=== PATIENT | female | born 1995 | race Caucasian/White ===

== ENCOUNTER 2023-01-10 15:31 | Emergency (ER) | payer OTHER, MEDICAID, SELFPAY ==
[2023-01-10 15:37] VITALS: BP 136/92; PULSE 84; RESP 18; TEMP 36.8; O2SAT 97; BMI 41.1
[2023-01-10 16:20] LABS: Add Manual Diff / Slide Review NO; Basophils Absolute Auto 100 /uL (0-100); Basophils Percent Auto 0.8 % (0-2); Eosinophils Absolute Auto 600 /uL (0-450); Eosinophils Percent Auto 6.5 % (2-4); Hematocrit 38.6 % (36-46); Lymphocytes Absolute Auto 2600 /uL (1100-4500); Lymphocytes Percent Auto 26.7 % (25-40); Mean Corpuscular HGB Conc 33.8 % (30-36); Mean Corpuscular Hemoglobin 27.9 PG (26-34); Mean Corpuscular Volume 82.5 fL (80-100); Monocytes Absolute Auto 700 /uL (0-900); Monocytes Percent Auto 7.3 % (3-14); Neutrophils Absolute Auto 5700 /uL (1500-7000); Neutrophils Percent Auto 58.7 % (50-75); Platelet Count 288 X10^3/uL (150-400); Red Blood Cell Count 4.67 X10^6/uL (4.0-5.2); Red Cell Distribution Width 14.5 % (11.6-14.8); White Blood Cell Count 9.8 X10^3/uL (4.5-11.0)
[2023-01-10 16:37] LABS: Alanine Aminotransferase 42 IU/L (<35); Albumin 4.4 g/dL (3.5-5.0); Albumin Globulin Ratio 1.1 (1.0-2.8); Alkaline Phosphatase 46 U/L (38-126); Aspartate Aminotransferase 34 IU/L (14-36); BUN Creatinine Ratio 15.4 (6-22); Bilirubin Total 0.4 mg/dL (0.2-1.3); Blood Urea Nitrogen 10 mg/dL (7-17); Calcium 9.7 mg/dL (8.4-10.2); Carbon Dioxide 22 mmol/L (22-32); Chloride 107 mmol/L (98-107); Estimated Glomerular Filt Rate > 60 mL/min (>60); Globulin 3.9 g/dL (1.7-4.1); Glucose 99 mg/dL (70-100); HEMOLYSIS < 15 (0-50); Lipase 220 U/L (23-300); Potassium 4.1 mmol/L (3.4-5.1); Sodium 137 mmol/L (137-145); Total Protein 8.3 g/dL (6.3-8.2)
[2023-01-10 17:52] VITALS: O2SAT 97
[2023-01-10 17:53] VITALS: BP 160/77; PULSE 74; O2SAT 98
[2023-01-10 18:00] VITALS: BP 120/70; PULSE 71; O2SAT 100
--- NOTE | 2023-01-10 18:10 | ED.GENADULT ---
HPI - General Adult General Chief complaint: Abdominal Pain Stated complaint: ABD cramping/ spotting/ fatigue Time Seen by Provider: 01/10/23 17:57 Source: patient Mode of arrival: Ambulatory History of Present Illness HPI narrative: Patient is a 27-year-old female. Not on blood thinners. Not on control. Last menstrual cycle was 2 weeks ago. She states that over the past month or so she has had episodes where she was having lower abdominal cramping. She is also having vaginal spotting. No urinary symptoms. No change in bowel habits. No vomiting. Has had her gallbladder removed but no other abdominal surgeries[place] which is why she is here today. Related Data Allergies Allergy/AdvReac Type Severity Reaction Status Date / Time No Known Drug Allergies Allergy Verified 01/10/23 15:37 Review of Systems Constitutional Constitutional: Reports system reviewed and no additional complaints, except as documented Gastrointestinal Gastrointestinal: Reports system reviewed and no additional complaints, except as documented Genitourinary Genitourinary: Reports system reviewed and no additional complaints, except as documented Hematologic/Lymphatic On Anticoagulants: No Patient History Social History Smoking Status: Current every day smoker Smoking Status: Current every day smoker tobacco type: vaping alcohol intake frequency: a few times a month Alcohol type: wine Substance Use Type: marijuana Exam Initial Vital Signs Initial Vital Signs: Vital Signs Temperature 98.3 F 01/10/23 15:37 Pulse Rate 84 01/10/23 15:37 Respiratory Rate 18 01/10/23 15:37 Blood Pressure 136/92 H 01/10/23 15:37 Pulse Oximetry 97 01/10/23 15:37 Oxygen Delivery Method Room Air 01/10/23 15:37 HENCA Head: normal to inspection and normocephalic Resp Effort & Inspection: normal respiratory effort Cardio Rate: regular rate GI Inspection: normal to inspection and non-distended Palpation: soft, No firm, No guarding and tender (Lower abdomen) Back/Spine/Pelvis Back: No CVA tenderness Skin General: no rashes or lesions noted Course Orders Ordered: ED Orders 01/10/23 16:00 Complete Blood Count AUTO DIFF Stat Comprehensive Metabolic Panel Stat Lipase Stat 01/10/23 18:09 US pelvic complete Stat Ondansetron HCl (Ondansetron 4 Mg Odt) 4 mg PO NOW PRN PRN Reason: Nausea And Vomiting Ondansetron HCl (Ondansetron 4 Mg/2 Ml Inj) 4 mg IV NOW PRN PRN Reason: Nausea And Vomiting Vital Signs Vital signs: Vital Signs - 8 hr 01/10/23 15:37 01/10/23 17:52 01/10/23 17:53 Temperature 98.3 F Pulse Rate 84 74 Respiratory Rate 18 Blood Pressure 136/92 H Pulse Oximetry 97 97 98 Oxygen Delivery Method Room Air 01/10/23 17:53 01/10/23 18:00 01/10/23 18:00 Temperature Pulse Rate 71 Respiratory Rate Blood Pressure 160/77 H 120/70 Pulse Oximetry 100 Oxygen Delivery Method Medical Decision Making Lab Data Lab results reviewed: Yes I reviewed the patient's lab results. 01/10/23 16:00 01/10/23 16:00 Labs: Lab Results 01/10/23 Range/Units 16:00 WBC 9.8 (4.5-11.0) X10^3/uL RBC 4.67 (4.0-5.2) X10^6/uL Hgb 13.0 (12.0-16.0) g/dL Hct 38.6 (36-46) % MCV 82.5 (80-100) fL MCH 27.9 (26-34) PG MCHC 33.8 (30-36) % RDW 14.5 (11.6-14.8) % Plt Count 288 (150-400) X10^3/uL Neut % (Auto) 58.7 (50-75) % Lymph % (Auto) 26.7 (25-40) % [place] % (Auto) 7.3 (3-14) % Eos % (Auto) 6.5 H (2-4) % Baso % (Auto) 0.8 (0-2) % Neut # (Auto) 5700 (2883-0606) /uL Lymph # (Auto) 2600 (7709-5801) /uL [place] # (Auto) 700 (0-900) /uL Eos # (Auto) 600 H (0-450) /uL Baso # (Auto) 100 (0-100) /uL Sodium 137 (137-145) mmol/L Potassium 4.1 (3.4-5.1) mmol/L Chloride 107 (98-107) mmol/L Carbon Dioxide 22 (22-32) mmol/L BUN 10 (7-17) mg/dL Creatinine 0.65 (0.52-1.04) mg/dL Estimated GFR > 60 (>60) mL/min BUN/Creatinine Ratio 15.4 (6-22) Glucose 99 (70-100) mg/dL Calcium 9.7 (8.4-10.2) mg/dL Total Bilirubin 0.4 (0.2-1.3) mg/dL AST 34 (14-36) IU/L ALT 42 H (<35) IU/L Alkaline Phosphatase 46 (38-126) U/L Total Protein 8.3 H (6.3-8.2) g/dL Albumin 4.4 (3.5-5.0) g/dL Globulin 3.9 (1.7-4.1) g/dL Albumin/Globulin Ratio 1.1 (1.0-2.8) Lipase 220 (23-300) U/L Point of Care Testing Test Results Negative Urine Dip Bedside Urine Glucose Negative Bedside Urine Bilirubin - Negative Bedside Urine Ketone - Negative Urine Specific [place] 1.020 Bedside Urine Occult Blood - Negative Bedside Urine pH 6.0 Bedside Urine Protein - Negative Bedside Urine Urobilinogen - Negative Bedside Urine Nitrite - Negative Bedside Urine Leukocytes - Negative Esterase Point of care testing: Point of Care Testing Test Results Negative Urine Dip Bedside Urine Glucose Negative Bedside Urine Bilirubin - Negative Bedside Urine Ketone - Negative Urine Specific [place] 1.020 Bedside Urine Occult Blood - Negative Bedside Urine pH 6.0 Bedside Urine Protein - Negative Bedside Urine Urobilinogen - Negative Bedside Urine Nitrite - Negative Bedside Urine Leukocytes - Negative Esterase Imaging Data US - ANIMAL [employer]S [employer] TRA[employer]ERS: Radiologist's Impression: PROCEDURE: US PELVIC COMPLETE INDICATIONS: lower abd pain TECHNIQUE: Real-time scanning was performed of the pelvic organs, with image documentation. Additional endovaginal scanning was necessary due to incomplete visualization of the adnexal and endometrial structures by transabdominal scanning. COMPARISON: None. FINDINGS: Uterus: The uterus measures 8 x 4 x 5 cm. Anteverted positioning. Endometrium measures 11 mm. Ovaries: Right ovary measures 12 cc. Left ovary measures 8 cc. Complex appearing cyst measures 2.3 cm in the right ovary, possibly hemorrhagic cyst. Other: Likely a physiologic amount of free fluid in the cul-de-sac. There is also mild free fluid adjacent to the right ovary. IMPRESSION: No significant ovarian enlargement. No significant findings in the uterus. Small amount of free fluid around the right ovary and pelvic cul-de-sac, probably physiologic. A complex appearing cyst is seen in the right ovary, probably hemorrhagic cysts, measuring 2.3 x 1.8 cm. MDM Narrative Medical decision making narrative: Labs unremarkable. Exam is unremarkable. Ultrasound shows no acute pathology. No fevers. test is negative. No change in bowel habits. Her discomfort is clearly suprapubic region. No adnexal tenderness. No indication for CT scanning. Will have her follow-up with her primary care doctor. Also gave her follow-up with senior electrical designer to discuss further evaluation if needed. She was given return precautions. She expressed understanding and agreement with plan. Discharge Plan Departure Patient Disposition: Home Clinical Impression: Pelvic pain Instructions: Chronic Pelvic Pain-Female Activity Restrictions/Additional Instructions: I do recommend that on Friday you contact your primary care doctor for a follow-up. You can also contact the senior electrical designer doctors at the number provided below for follow-up as well. Return to the emergency department for new symptoms. Referrals: Ayaka Thapa MD [Physician] - Miscellaneous,MD Opal [Primary Care Provider] - Stand Alone Forms: Patient Portal/API
[2023-01-10 18:34] VITALS: BP 128/62; PULSE 90; RESP 16; TEMP 36.8; O2SAT 98
== END 2023-01-10 19:05 | disposition home or self-care (01) ==
PROVIDERS: Emergency Medicine; Emergency Provider Emergency Medicine
DX: R10.2 Pelvic and perineal pain (principal)
CPT/HCPCS: 36415; 76830; 76856; 80053; 81003; 81025; 83690; 85025; 99283

== ENCOUNTER → 2024-02-04 13:42 | Outpatient (CLI) | payer OTHER, SELFPAY ==
[2024-02-04 15:07] LABS: Add Manual Diff / Slide Review NO; Basophils Absolute Auto 0 /uL (0-100); Basophils Percent Auto 0.9 % (0-2); Eosinophils Absolute Auto 100 /uL (0-450); Eosinophils Percent Auto 2.1 % (2-4); Hemoglobin 13.4 g/dL (12.0-16.0); Lymphocytes Absolute Auto 2000 /uL (1100-4500); Lymphocytes Percent Auto 48.6 % (25-40); Mean Corpuscular HGB Conc 32.7 % (30-36); Mean Corpuscular Hemoglobin 27.3 PG (26-34); Mean Corpuscular Volume 83.6 fL (80-100); Monocytes Absolute Auto 500 /uL (0-900); Monocytes Percent Auto 11.6 % (3-14); Neutrophils Absolute Auto 1500 /uL (1500-7000); Neutrophils Percent Auto 36.8 % (50-75); Platelet Count 218 X10^3/uL (150-400); Red Blood Cell Count 4.91 X10^6/uL (4.0-5.2); Red Cell Distribution Width 14.2 % (11.6-14.8); White Blood Cell Count 4.2 X10^3/uL (4.5-11.0)
[2024-02-04 15:19] LABS: Hemoglobin A1C% w Est Avg Glu 5.1 % (4.0-6.0)
[2024-02-05 15:34] LABS: Hepatitis B Surface Antigen NEGATIVE s/c (NEGATIVE); Rubella Antibody IgG 3.2 IU/mL (>15)
[2024-02-05 15:49] LABS: HIV 1 & 2 Ab/Ag 4th Gen Combo NEGATIVE (NEGATIVE); Hep C Virus Ab w/Reflex Quant NEGATIVE s/c (NEGATIVE)
== END ==
PROVIDERS: Referring Provider Obstetrics & Gynecology; Visit Provider Obstetrics & Gynecology
DX: O99.210 Obesity complicating pregnancy, unspecified trimester (principal)
CPT/HCPCS: 80055; 83036; 86787; 86803; 86850; 86900; 86901; 87086; 87389

== ENCOUNTER → 2024-03-03 11:53 | Outpatient (CLI) | payer OTHER, SELFPAY ==
[2024-03-03 12:57] LABS: Natera Collection Specimen Collected
== END ==
LOC: LAB 11:54
PROVIDERS: Referring Provider Obstetrics & Gynecology; Visit Provider Obstetrics & Gynecology
DX: Z34.01 Encounter for supervision of normal first pregnancy, first trimester (principal)
CPT/HCPCS: 36415

== ENCOUNTER → 2024-05-05 09:49 | Outpatient (CLI) | payer OTHER, SELFPAY | PROVIDERS: PCP Student in an Organized Health Care Education/Training Program; Referring Provider Obstetrics & Gynecology; Visit Provider Obstetrics & Gynecology | DX: Z3A.19 19 weeks gestation of pregnancy; Z34.02 Encounter for supervision of normal first pregnancy, second trimester | CPT/HCPCS: 36415; 82105 ==

== ENCOUNTER → 2024-05-05 10:26 | Outpatient (CLI) | payer OTHER, SELFPAY ==
--- NOTE | 2024-05-05 10:27 | DI.US.S_ITS ---
PROCEDURE: US OB >= 14 WEEKS FETUS INDICATIONS: 20 week anatomy OUTSIDE/PRIOR DATING DATA: Last menstrual period (LMP): 12/18/2023. LMP-based estimated date of delivery (LIVIER): 09/23/2024. TECHNIQUE: Real-time scanning was performed of the fetus, with image documentation and biometric measurements. COMPARISON: None. FINDINGS: General: A single living intrauterine gestation is present. Presentation: Variable. Placenta: Placental position is posterior , without previa. Amniotic fluid index: 11.7 cm, normal range is 5-24 cm. Single deepest vertical pocket is 4.5 cm. heart rate: 140 beats per minute. Maternal cervical canal: 4.9 cm long. Normal lower limit is 2.5 cm. biometrics: Biparietal diameter: 4.1 cm, 18 weeks and 3 days Head circumference: 15.4 cm, 18 weeks and 2 days Abdominal circumference: 12.9 cm, 18 weeks and 3 days Femur length: 2.9 cm, 19 weeks Clinically estimated gestational age: 19 weeks and 6 days Composite gestational age from present scan: 18 weeks and 4 days Estimated weight and percentile: 253 g, 5% Anatomic survey: Neuro: Ventricles are non-dilated at less than 10 mm. Cisterna magna is normal at 3-11 mm. Cerebellum is normal in size and morphology. Nuchal skin fold: Normal at less than 6 mm between 14-21 weeks gestational age. Face: Nose and lips, facial profile are normal. Spine: No evidence for spina bifida. Heart: Not well seen Diaphragm: Diaphragm is intact. Stomach: Left-sided stomach is present. Kidneys: No hydronephrosis. Normal is less than 5 mm in 2nd trimester, less than 7 mm in 3rd trimester. Cord: 3-vessel cord has orthotopic insertion. Bladder: Normal in size. Extremities: All 4 extremities identified. IMPRESSION: Living intrauterine gestation in variable presentation. Normal ARNOLDO. EFW is lower than expected, 5th percentile. Cardiac structures not well seen due to position. Short interval follow-up is recommended. Dictated by: Darrell Conrad M.D. on 05/05/2024 at 14:45 Approved by: Darrell Conrad M.D. on 05/05/2024 at 14:49
== END ==
PROVIDERS: PCP Student in an Organized Health Care Education/Training Program; Referring Provider Obstetrics & Gynecology; Visit Provider Obstetrics & Gynecology
DX: Z34.02 Encounter for supervision of normal first pregnancy, second trimester (principal); Z3A.19 19 weeks gestation of pregnancy
CPT/HCPCS: 36415; 76811; 82105

== ENCOUNTER 2024-06-02 09:55 | Outpatient (CLI) | payer OTHER, SELFPAY ==
[2024-06-02 10:40] LABS: Add Manual Diff / Slide Review NO; Basophils Absolute Auto 100 /uL (0-100); Basophils Percent Auto 0.8 % (0-2); Eosinophils Absolute Auto 500 /uL (0-450); Eosinophils Percent Auto 4.5 % (2-4); Hematocrit 34.6 % (36-46); Hemoglobin 11.5 g/dL (12.0-16.0); Lymphocytes Absolute Auto 2200 /uL (1100-4500); Mean Corpuscular HGB Conc 33.1 % (30-36); Mean Corpuscular Hemoglobin 27.4 PG (26-34); Mean Corpuscular Volume 82.6 fL (80-100); Monocytes Absolute Auto 800 /uL (0-900); Monocytes Percent Auto 7.3 % (3-14); Neutrophils Absolute Auto 7300 /uL (1500-7000); Neutrophils Percent Auto 67.4 % (50-75); Platelet Count 245 X10^3/uL (150-400); Red Blood Cell Count 4.19 X10^6/uL (4.0-5.2); Red Cell Distribution Width 15.5 % (11.6-14.8); White Blood Cell Count 10.8 X10^3/uL (4.5-11.0)
[2024-06-02 10:52] LABS: Alanine Aminotransferase 27 IU/L (<35); Albumin 3.8 g/dL (3.5-5.0); Albumin Globulin Ratio 1.2 (1.0-2.8); Alkaline Phosphatase 45 U/L (38-126); Aspartate Aminotransferase 27 IU/L (14-36); BUN Creatinine Ratio 9.5 (6-22); Bilirubin Total 0.2 mg/dL (0.2-1.3); Blood Urea Nitrogen 6 mg/dL (7-17); Calcium 8.8 mg/dL (8.4-10.2); Carbon Dioxide 19 mmol/L (22-32); Chloride 107 mmol/L (98-107); Estimated Glomerular Filt Rate > 60 mL/min (>60); Globulin 3.3 g/dL (1.7-4.1); Glucose 118 mg/dL (70-100); HEMOLYSIS < 15 (0-50); Potassium 3.9 mmol/L (3.4-5.1); Sodium 134 mmol/L (137-145); Total Protein 7.1 g/dL (6.3-8.2); Uric Acid 3.6 mg/dL (2.5-6.2)
[2024-06-02 11:05] LABS: Creatinine Urine Random 238.24 mg/dL; Protein (Total) Urine Random < 5 mg/dL (0-12); Protein Creatinine Ratio Urine 0.02 GRAM/24H
--- NOTE | 2024-06-02 11:29 | P.TNLD_ITS ---
Visit Information Visit Information Date of evaluation: 06/02/24 Primary OB Provider: Maral Lin On-call OB Provider: Maral Lin Reason for Evaluation: Yes other Comments/Additional reasons for admission: 29yo G1 at 23w4d, sent from office for serial BP monitoring and baseline PIH labs after persistent mild range BP in office. BP on L&D normal without indication for medication at this time. FORMERLY [facility], [facility] Medical History (Updated 05/05/24 @ 15:19 by Maral Lin MD) growth abnormality Asthma (~2008) Depression (~2018) ADHD (~2004) Ankle pain (~2007) Ankle fracture (~2007) Surgical History (Updated 02/29/24 @ 18:39 by Asha Leach) Anesthesia [place] teeth extracted History of cholecystectomy (~2021) Family History (Updated 02/29/24 @ 18:40 by Asha Leach) Mother Diverticulosis Loi-Danlos syndrome Bleeding disorder Grandfather Heart disease Cardiac arrhythmia Father Heart attack Sister Endometriosis History of hysterectomy Inflammatory disorder Social History marital status: unmarried,living together number of children: 0 household members: significant other lives independently: Yes caregiver/support person: No housing: apartment pets and animals: Yes (cats) education level: high school occupational status: employed ([employer], house painting) current occupational exposures/hazards: Yes special nora needs: No travel history: recent (domestic only) seatbelt use: always water heater temp set < 120 deg: Yes working smoke detector in home: Yes fire extinguisher in home: Yes carbon monox detector in home: Yes firearms in home: Yes firearms unloaded and locked: Yes do you feel safe at home: Yes Tobacco: How many years used: 10 Smokeless tobacco user: other (nicotine pouches to help quit smoking) second hand exposure: No (s/o quit with her) alcohol intake: former (very occasionally when not ) substance use type: marijuana (not while /) during the past year weight has: other (wide fluctuations) well-balanced diet: daily or most days daily servings fruits/ve or more times/day caffeine: Yes (coffee/soft drinks, aware of 200mg limit) Type(s) of exercise: walking and other (physical) Objective Labs 06/02/24 10:20 06/02/24 10:20 Labs: Laboratory Results - last 24 hr 06/02/24 10:20 WBC 10.8 RBC 4.19 Hgb 11.5 L Hct 34.6 L MCV 82.6 MCH 27.4 MCHC 33.1 RDW 15.5 H Plt Count 245 Neut % (Auto) 67.4 Lymph % (Auto) 20.0 L [place] % (Auto) 7.3 Eos % (Auto) 4.5 H Baso % (Auto) 0.8 Neut # (Auto) 7300 H Lymph # (Auto) 2200 [place] # (Auto) 800 Eos # (Auto) 500 H Baso # (Auto) 100 Sodium 134 L Potassium 3.9 Chloride 107 Carbon Dioxide 19 L BUN 6 L Creatinine 0.63 Estimated GFR > 60 BUN/Creatinine Ratio 9.5 Glucose 118 H Uric Acid 3.6 Calcium 8.8 Total Bilirubin 0.2 AST 27 ALT 27 Alkaline Phosphatase 45 Total Protein 7.1 Albumin 3.8 Globulin 3.3 Albumin/Globulin Ratio 1.2 U Random Total Protein < 5 Urine Creatinine 238.24 Protein/Creatinin Ratio 0.02 Evaluation Evaluation Baseline heart rate: 155 Diagnosis, Plan/Disposition Plan/Disposition OB Disposition: home
== END 2024-06-02 11:22 | disposition home or self-care (01) ==
LOC: LABOR 10:36 → OB 06-03 09:51
PROVIDERS: PCP Student in an Organized Health Care Education/Training Program; Referring Provider Obstetrics & Gynecology; Visit Provider Obstetrics & Gynecology
DX: O16.2 Unspecified maternal hypertension, second trimester (principal); Z3A.23 23 weeks gestation of pregnancy
CPT/HCPCS: 80053; 84550; 85025; G0378; G0379